=== PATIENT | female | born 1970 | race Caucasian/White ===

== ENCOUNTER 2020-07-11 12:50 | Inpatient (IN) | payer OTHER ==
[~2020-07-11] VITALS: Ht 165.1 cm; Wt 101.6 kg
[2020-07-11 13:28] LABS: BASOPHILS # (AUTO) 0.1 (0.0-0.1); BASOPHILS % 0.6 % (0.0-1.0); EOSINOPHILS # (AUTO) 0.1 (0.0-0.4); HEMATOCRIT 39.2 % (34.2-44.1); HEMOGLOBIN 12.9 g/dL (12.0-16.0); LYMPHOCYTES # (AUTO) 2.2 (1.0-3.2); LYMPHOCYTES % 26.3 % (18.0-39.1); MEAN CORPUSCULAR HEMOGLOBIN 27.6 pg (28-32); MEAN CORPUSCULAR HGB CONC 32.9 g/dL (31-35); MEAN CORPUSCULAR VOLUME 83.8 fL (81-99); MONOCYTES # (AUTO) 0.6 (0.2-0.8); MONOCYTES % 6.9 % (4.4-11.3); NEUTROPHILS # (AUTO) 5.4 (2.1-6.9); PLATELET COUNT 281 x10e3/uL (140-360); RED BLOOD COUNT 4.68 x10e6/uL (3.6-5.1); RED CELL DISTRIBUTION WIDTH 12.7 % (11.7-14.4)
[2020-07-11] MEDS ORDERED: SODIUM CHLORIDE 0.9% 1000ML 1,000 ML IV STA (13:38)
[2020-07-11] MEDS ORDERED: MECLIZINE HCL 12.5 MG TAB PO ONE (13:45)
[2020-07-11 13:48] LABS: ALANINE AMINOTRANSFERASE 17 IU/L (0-55); ALBUMIN 4.7 g/dL (3.5-5.0); ALBUMIN/GLOBULIN RATIO 1.3 (0.8-2.0); ALKALINE PHOSPHATASE 73 IU/L (40-150); ANION GAP 16.5 mmol/L (8-16); BLOOD UREA NITROGEN 10 mg/dL (7-26); BUN/CREATININE RATIO 13 (6-25); CALCIUM 9.5 mg/dL (8.4-10.2); CARBON DIOXIDE 23 mmol/L (22-29); CHLORIDE 102 mmol/L (98-107); CREATINE KINASE 50 IU/L (29-168); CREATININE, SERUM 0.79 mg/dL (0.57-1.11); EST GLOMERULAR FILTRATION RATE > 60 ML/MIN (60-); GLUCOSE 103 mg/dL (74-118); POTASSIUM 4.5 mmol/L (3.5-5.1); SODIUM 137 mmol/L (136-145)
[2020-07-11] MEDS ORDERED: MORPHINE SULFATE INJ 4 MG/ML INJ 1ML IV STA (15:06)
[2020-07-11] MEDS ORDERED: ONDANSETRON HCL INJ 2MG/ML 2ML 2 MG/ML VIAL IV ONE (15:15)
[2020-07-11] MEDS ORDERED: KETOROLAC TROMETHAMINE 30 MG/ML VIAL IV PRN (19:30)
[2020-07-11 20:00] VITALS: BP 119/81
[2020-07-11 20:42] VITALS: BP 119/81
[2020-07-11 21:00] VITALS: BP 119/81
[2020-07-11] MEDS ORDERED: ALPRAZOLAM0.5 MG PO (21:05)
[2020-07-11] MEDS ORDERED: TRAZODONE HCL150 MG PO (21:05)
[2020-07-11] MEDS ORDERED: CYMBALTA30 MG PO (21:05)
[2020-07-11] MEDS ORDERED: ALPRAZOLAM 0.5 MG TAB PO PRN (21:30)
[2020-07-11] MEDS ORDERED: ONDANSETRON HCL INJ 2MG/ML 2ML 2 MG/ML VIAL IV PRN (21:30)
[2020-07-11] MEDS: HYDROCODONE/APAP 5MG-325MG TAB PO PRN (21:32)
[2020-07-11] MEDS: TRAZODONE HCL 50 MG TAB PO SCH (22:12)
[2020-07-11] MEDS: DULOXETINE HCL 30 MG DELAYED RELEASE PO SCH (22:12)
[2020-07-11 23:04] LABS: CREATINE KINASE MB 0.7 ng/mL (0-5.0)
[2020-07-12] VITALS (8 sets, daily range): BP systolic 96–160; BP diastolic 58–93
[2020-07-12 06:39] LABS: CHOL/HDL RATIO 4.9 (3.0-3.6)
[2020-07-12 07:01] LABS: CREATINE KINASE MB 0.5 ng/mL (0-5.0)
[2020-07-12] MEDS: HYDROCODONE/APAP 5MG-325MG TAB PO PRN (08:05)
[2020-07-12] MEDS: HYDROCODONE/APAP 10MG-325MG TAB PO PRN ×2 (11:30→22:16)
[2020-07-12] MEDS ORDERED: KETOROLAC TROMETHAMINE 30 MG/ML VIAL IV PRN (17:15)
[2020-07-12] MEDS ORDERED: HYDROCODONE/APAP 10MG-325MG TAB PO ONE (17:15)
[2020-07-12] MEDS ORDERED: DOCUSATE SODIUM LIQD 100 MG/10 ML UDC NG ONE (17:15)
[2020-07-12] MEDS ORDERED: MAGNESIUM SULF 1GRAM/DEXTROSE 100 ML IV ONE (17:45)
[2020-07-12] MEDS ORDERED: VALPROATE SOD INJ 500 MG in SODIUM CHLORIDE 0.9% 100 ML 100 ML INJ SCH (17:45)
[2020-07-12] MEDS ORDERED: SODIUM CHLORIDE 0.9% 250ML 250 ML ONE (18:04)
[2020-07-12] MEDS: DULOXETINE HCL 30 MG DELAYED RELEASE PO SCH (22:16)
[2020-07-13] VITALS (9 sets, daily range): BP systolic 115–144; BP diastolic 69–75
[2020-07-13] MEDS ORDERED: KETOROLAC TROMETHAMINE 30 MG/ML VIAL IV ONE (00:30)
[2020-07-13] MEDS: TRAZODONE HCL 50 MG TAB PO SCH ×2 (01:20→02:10)
[2020-07-13] MEDS: HYDROCODONE/APAP 10MG-325MG TAB PO PRN ×3 (08:45→20:15)
[2020-07-13] MEDS: TOPIRAMATE 25 MG TAB PO SCH ×2 (09:05→17:20)
[2020-07-13] MEDS: DULOXETINE HCL 30 MG DELAYED RELEASE PO SCH (20:15)
[2020-07-13] MEDS ORDERED: TRAZODONE HCL 50 MG TAB PO SCH (22:01)
[2020-07-14] VITALS: BP 119/66
[2020-07-14 04:00] VITALS: BP 125/69
[2020-07-14] MEDS: HYDROCODONE/APAP 10MG-325MG TAB PO PRN ×3 (07:59→16:13)
[2020-07-14] MEDS: TOPIRAMATE 25 MG TAB PO SCH ×2 (08:00→16:13)
[2020-07-14 08:32] VITALS: BP 97/63
[2020-07-14 08:45] VITALS: BP 97/63
[2020-07-14] MEDS ORDERED: DOCUSATE SODIUM 100 MG CAP PO ONE (09:15)
[2020-07-14 11:20] VITALS: BP 114/61
[2020-07-14] MEDS ORDERED: METHYLPREDNISOLONE SOD SUCC 125 MG/2ML VIAL IV ONE (15:00)
[2020-07-14] MEDS ORDERED: METHYLPREDNISOLONE SOD SUCC IV ONE (15:30)
[2020-07-14] MEDS ORDERED: SODIUM CHLORIDE 0.9% IV ONE (15:30)
[2020-07-14 15:39] VITALS: BP 119/71
[2020-07-14] MEDS ORDERED: TOPAMAX25 MG PO (18:34)
[2020-07-14] MEDS ORDERED: CAMBIA50 MG PO (18:35)
== END 2020-07-14 19:00 | disposition home or self-care (01) | DRG 103 ==
LOC: ER 13:20 → ERHOLD 15:17 → MED/SURG3 20:40 → OBSVTOIN 07-13 09:57
PROVIDERS: ADMIT Internal Medicine; ATTEND Internal Medicine
DX: G43.909 Migraine, unspecified, not intractable, without status migrainosus (principal); R07.89 Other chest pain; F32.9 Major depressive disorder, single episode, unspecified; G47.00 Insomnia, unspecified; F41.9 Anxiety disorder, unspecified; Z88.0 Allergy status to penicillin; Z88.2 Allergy status to sulfonamides; Z88.8 Allergy status to other drugs, medicaments and biological substances; M79.622 Pain in left upper arm
CPT/HCPCS: 36415; 70450; 70544; 70551; 80053; 80061; 82550; 82553; 84484; 85025; 85379; 85651; 93005; 99284; G0378; J1885; J2270; J2405; J2930; J3475; J7030; J7050; U0002